=== PATIENT | female | born 1965 | race Caucasian/White ===

== ENCOUNTER → 2016-05-29 | Outpatient (CLI) | payer OTHER ==
[2016-05-29 12:58] LABS: MEAN CORPUSCULAR HEMOGLOBIN 27.7 PG (26.0-34.0); MEAN CORPUSCULAR HGB CONC 33.4 g/dL (31.0-37.0); MEAN PLATELET VOLUME 10.6 FL (6.0-9.5); WHITE BLOOD COUNT 8.02 10^3uL (4.0-11.0)
[2016-05-29 13:23] LABS: ALBUMIN 4.9 g/dL (3.4-5.0); ANION GAP 17.3 MEQ/L (3-15); CALCULATED IONIZED CALCIUM 4.1 mg/dL (3.8-4.6)
== END ==
LOC: LAB 12:38
PROVIDERS: ATTEND Internal Medicine Rheumatology
DX: M54.08 Panniculitis affecting regions of neck and back, sacral and sacrococcygeal region (principal)
CPT/HCPCS: 36415; 80053; 85027; 85652; 86140

== ENCOUNTER → 2016-06-04 | Outpatient (CLI) | payer OTHER ==
[2016-06-04 21:14] LABS: HEPATITIS B SURFACE ANTIGEN C Negative
[2016-06-11 14:21] LABS: HEP C COPIES ML Not Detected
== END ==
LOC: LAB 11:27
PROVIDERS: ATTEND Internal Medicine Rheumatology
DX: L40.59 Other psoriatic arthropathy (principal); L40.8 Other psoriasis; Z79.899 Other long term (current) drug therapy
CPT/HCPCS: 36415; 86803; 87340; 87522